=== PATIENT | female | born 1940 | race African-American/Black ===

== ENCOUNTER 2017-01-23 05:59 | Inpatient (IN) ==
--- NOTE | 2017-01-23 06:19 | PROVIDER DOCUMENTATION ---
HPI-General Adult - General Chief Complaint: Asthma Attack Stated Complaint: asthma attack Time Seen by Provider: 01/23/17 06:13 Source: patient, EMS Allergies/Adverse Reactions: Patient Allergies Allergy/AdvReac Type Severity Reaction Status Date / Time No Known Allergies Allergy Verified 01/23/17 06:16 Home Medications: Home Medication List Medication Instructions Recorded Confirmed Last Taken Type Nifedipine [Nifedipine ER] 90 mg PO DAILY 09/20/14 01/23/17 02/01/16 History Omeprazole 40 mg PO DAILY 09/20/14 01/23/17 02/01/16 History Aspirin [Aspirin EC] 81 mg PO DAILY 02/01/16 01/23/17 02/01/16 History - History of Present Illness -Gen Adult Nature of Presenting Problems: says that she started to have wheezing and worsening shortness of breath last night. has been fever free during this time. has not been intubated in the past and says that this is not her worst attack. patient not on home supplemental oxygen. Location of Pain/Injury: reports: none Pain Radiation: reports: no radiation Timing: reports: still present Modifying Factors: improves with: nothing Associated Symptoms: reports: shortness of breath Similar Symptoms Previously?: Yes Recently seen or treated by another doctor?: No Review of Systems - Adult - REVIEW OF SYSTEMS - ADULT Constitutional: reports: no symptoms reported. denies: fever Eyes: reports: no symptoms reported Ears, Nose, Mouth & Throat: reports: no symptoms reported Cardiovascular: reports: no symptoms reported Respiratory: reports: wheezing Gastrointestinal: reports: no symptoms reported Genitourinary: reports: no symptoms reported Musculoskeletal: reports: no symptoms reported Integumentary: reports: no symptoms reported Psychiatric: reports: no symptoms reported Endocrine: reports: no symptoms reported Hematologic/Lymphatic: reports: no symptoms reported Past History - Adult - PAST MEDICAL HISTORY-ADULT Review of Records: reports: Nursing Assessment Review Major Childhood Illnesses: reports: denies history Cardiovascular: reports: blood clots (PE - November 2015), HTN, hyperlipidemia Respiratory: reports: sleep apnea Gastrointestinal: reports: GERD Genitourinary: reports: kidney stones Other Conditions: reports: cataract/glaucoma - PRIOR SURGERIES/PROCEDURES Surgical/Procedure History: reports: colonoscopy, cholecystectomy, hysterectomy , joint replacement, other (kidney stone) - IMMUNIZATION STATUS Childhood Immunizations: See Nurse Assessment Flu Vaccine: See Nurse Assessment Physical Exam-General - PHYSICAL EXAM-ADULT Initial Vital Signs Reviewed: Yes - CONSTITUTIONAL General Appearance: other (uncomfortable but non-toxic in appearance) - EYES Eyes: PERRL/EOMI - HEAD, EARS, NOSE, MOUTH & THROAT HENMT: normocephalic/atraumatic - NECK Neck: non-tender - RESPIRATORY Respiratory: wheezing. negative: accessory muscle use, crackles - CARDIOVASCULAR Cardiovascular: regular rate, rhythm - GASTROINTESTINAL (ABDOMEN) Abdominal Exam: normal bowel sounds - LYMPHATIC Lymphatic: no adenopathy - MUSCULOSKELETAL Back Exam: normal inspection - NEUROLOGIC Neurologic: grossly normal, no motor/sensory deficits Progress - PLAN OF CARE/RESULTS Progress/Plan/Lab Results: Orders Category Date Time Status EKG [EKG] Stat Ther 01/23/17 05:58 Ordered Result Diagrams: 01/23/17 06:20 01/23/17 06:59 - REASSESSMENT Reassessment #1 Time Reassessed: 06:25 Status: improving (ABle to speak in more words.) Reassessment #2 Time Reassessed: 07:13 Status: other (Made aware of current treatment plan, Family made aware as well.) - CONSULTS/PCP/HOSPITALIST Notification #1 *Consult/PCP/Hospitalist*: Dr. Davison Time Discussed: 07:56 Consult Disposition: Admit, other (Made aware of reason for consult, made aware of treatment rendered while in ED and patient current stable condition. Agrees to accept patient and ask that admission orders be placed.) Departure - Departure Time of Disposition Decision: 07:21 DIAGNOSIS: Asthma exacerbation, CAP (community acquired pneumonia) Disposition: ADMITTED INPATIENT 09 Certified Medical Emergency: Emergent Condition: Stable Referrals and Follow-Ups: Matthew Frye MD [Primary Care Provider] - - Critical Care Note This patient required my direct & personal management of CC.: No
[2017-01-23] MEDS ORDERED: ALBUTEROL NEB INH ONE (06:26)
[2017-01-23] MEDS ORDERED: PREDNISONE PO ONE (06:26)
[2017-01-23] MEDS ORDERED: ATROVENT NEB INH ONE (06:27)
[2017-01-23 06:31] LABS: MANUAL DIFF NEEDED? NO
[2017-01-23 06:43] LABS: BASO% 0.5 % (0.0-0.8); EOS# 0.35 X1000 (0.0-0.7); EOS% 3.4 % (0.0-10.0); HEMATOCRIT 40.6 % (37.0-47.0); HEMOGLOBIN 13.6 g/dL (12.0-16.0); IMM GRAN# 0.03 X1000 (0.0-0.04); IMM GRAN% 0.3 % (0.0-0.5); LYMPH# 3.87 X1000 (1.2-3.4); LYMPH% 37.9 % (20.5-51.1); MCH 25.5 PG (27-31); MCHC 33.5 g/dL (33-37); MONO# 1.19 X1000 (0.11-0.59); MONO% 11.7 % (1.7-9.3); MPV 12.6 FL (7.4-10.4); NEUT% 46.2 % (42.2-75.2); PLT 230 X1000 (130-400); RBC 5.34 XMIL (4.2-5.4)
[2017-01-23] MEDS ORDERED: ROCEPHIN 500 MG in NS 50 ML IV ONE (07:12)
[2017-01-23] MEDS ORDERED: ZITHROMAX 500 MG/NS 500 MG/250 ML IVPB IV ONE (07:25)
[2017-01-23 07:44] LABS: ALBUMIN 4.3 g/dL (3.5-5.0); CALCIUM 10.7 mg/dL (8.8-10.2); POTASSIUM 3.7 mmol/L (3.5-5.1); TOTAL BILIRUBIN 0.34 mg/dL (0.20-1.00)
[2017-01-23] MEDS ORDERED: MORPHINE IV PRN (08:01)
--- NOTE | 2017-01-23 08:13 | Diag Imaging Result Doc PS360 ---
EXAM: CHEST-PORTABLE HISTORY: wheezing TECHNIQUE: Portable upright AP COMPARISON: 09/20/2014 FINDINGS: The lungs are well expanded. The heart is not enlarged. The vessels are not distended. No pneumonia. No pleural effusions identified. Mild scoliosis. IMPRESSION: Negative chest Electronically signed by Flo Rae 01/23/2017 8:10 AM
[2017-01-23] MEDS ORDERED: TYLENOL PO PRN (11:23)
[2017-01-23] MEDS ORDERED: DUONEB (A & A) INH SCH (11:30)
[2017-01-23] MEDS: ASPIRIN EC PO SCH (12:56)
[2017-01-23] MEDS: ADALAT CC PO SCH (12:57)
[2017-01-23] MEDS: SOLU-MEDROL IV SCH ×2 (12:57→22:14)
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
--- NOTE | 2017-01-23 15:38 | ED EKG INTERP ---
This chart was entered by Silvina Barnes Scribe, acting as scribe for Louis Sanchez MD. EKG Interpretation - EKG Time of EKG reading by physician:: 06:03 EKG Read and Signed by:: Louis Sanchez EKG Interpretation (*Must complete 3 of following elements*): Abnormal Rate: 99 (Possible left atrial enlargement; ST and T wave abnormality, consider lateral ischemia) Rhythm: NSR This chart was documented by the indicated scribe, (Silvina Barnes Scribe) and accurately reflects the services I performed and decisions made by Daniel garcia Vincent J., MD, as attested by the provider's signature.
[2017-01-23] MEDS: DUONEB (A & A) INH SCH ×2 (16:22→23:05)
[2017-01-23] MEDS: PRILOSEC PO SCH (22:15)
[2017-01-23] MEDS: ROCEPHIN 1 GM/NS 1 GM/50 ML IVPB IV SCH (22:16)
[2017-01-23] MEDS: RESTORIL PO PRN (22:16)
[2017-01-24] MEDS: DUONEB (A & A) INH SCH ×4 (03:34→23:06)
[2017-01-24] MEDS: PRILOSEC PO SCH ×2 (05:59→21:36)
[2017-01-24] MEDS: SOLU-MEDROL IV SCH ×3 (05:59→21:37)
[2017-01-24 06:40] LABS: HEMATOCRIT 35.3 % (37.0-47.0); HEMOGLOBIN 11.8 g/dL (12.0-16.0); IMM GRAN# 0.03 X1000 (0.0-0.04); IMM GRAN% 0.2 % (0.0-0.5); LYMPH# 0.94 X1000 (1.2-3.4); LYMPH% 6.4 % (20.5-51.1); MANUAL DIFF NEEDED? YES; MCH 25.7 PG (27-31); MCHC 33.4 g/dL (33-37); MCV 76.9 FL (81-99); MONO# 0.38 X1000 (0.11-0.59); MONO% 2.6 % (1.7-9.3); MPV 12.8 FL (7.4-10.4); NEUT% 90.8 % (42.2-75.2); PLT 205 X1000 (130-400); RBC 4.59 XMIL (4.2-5.4)
[2017-01-24 06:51] LABS: AGAP 12; BUN 21 mg/dL (8-22); CALCIUM 9.4 mg/dL (8.8-10.2); CHLORIDE 107 mmol/L (98-107); COSMO 287; SODIUM 141 mmol/L (136-145); TCO2 22 mmol/L (25-35)
[2017-01-24 07:16] LABS: BANDS 2 % (0-1); LYMPHS 4 % (21-51); MONO 2 % (1-9)
[2017-01-24] MEDS: ROCEPHIN 1 GM/NS 1 GM/50 ML IVPB IV SCH ×2 (09:40→21:36)
[2017-01-24] MEDS: ASPIRIN EC PO SCH (09:40)
[2017-01-24] MEDS: ADALAT CC PO SCH (09:40)
--- NOTE | 2017-01-24 11:57 | PROGRESS NOTE ---
DATE: 01/24/2017 SUBJECTIVE: The patient overall is doing better, breathing better. She is eating her lunch. OBJECTIVE: Afebrile, pulse 97 to 100, respiratory rate 18, blood pressure 145/78, O2 saturation on oxygen is 97%. Cardiovascular: Regular rate and rhythm. Lungs: Coarse breath sounds, particularly at right lung base, otherwise CTA. No active wheezes. Abdomen: Nontender. Extremities: No calf tenderness, cords or edema. Neurologic: Cranial nerves intact. No focal deficits. DIAGNOSTIC DATA: Blood cultures x2 at this point are negative. White count up to 15,000 from 10,000, but that is on IV steroids. Hemoglobin 11.8, platelets 205, neutrophils 91, lymphocytes 6.4. Sodium 141, potassium 4.0, chloride 107, CO2 is 22, BUN is 21, creatinine 0.8, calcium 9.4. Plasma lactate on admission 2.7. ASSESSMENT: 1. Asthma exacerbation. 2. Bronchitis. 3. Hypertension. 4. Gastroesophageal reflux disease. PLAN: Continue aspirin, nifedipine, omeprazole. Continue IV Rocephin and Zithromax started per Dr. Davison. Continue albuterol and Atrovent nebulizer treatments q.6 hours and IV Solu Medrol 60 mg IV q.8 hours. If the patient continues to improve, we hope to discharge her tomorrow. cc: MD Elias Read MD
[2017-01-24] MEDS: ZITHROMAX 500 MG/NS 500 MG/250 ML IVPB IV SCH (14:01)
[2017-01-24] MEDS: RESTORIL PO PRN (21:39)
[2017-01-25] MEDS: DUONEB (A & A) INH SCH ×4 (03:20→22:36)
[2017-01-25] MEDS: SOLU-MEDROL IV SCH ×3 (05:05→20:26)
[2017-01-25 06:27] LABS: HEMATOCRIT 37.6 % (37.0-47.0); HEMOGLOBIN 12.5 g/dL (12.0-16.0); IMM GRAN# 0.04 X1000 (0.0-0.04); IMM GRAN% 0.2 % (0.0-0.5); LYMPH# 1.16 X1000 (1.2-3.4); LYMPH% 6.9 % (20.5-51.1); MANUAL DIFF NEEDED? YES; MCH 25.5 PG (27-31); MCHC 33.2 g/dL (33-37); MCV 76.6 FL (81-99); MONO# 0.77 X1000 (0.11-0.59); MONO% 4.6 % (1.7-9.3); MPV 12.6 FL (7.4-10.4); NEUT% 88.3 % (42.2-75.2); PLT 219 X1000 (130-400); RBC 4.91 XMIL (4.2-5.4)
[2017-01-25] MEDS: PRILOSEC PO SCH ×2 (06:54→20:26)
[2017-01-25 06:56] LABS: AGAP 14; BUN 21 mg/dL (8-22); CALCIUM 9.7 mg/dL (8.8-10.2); CHLORIDE 103 mmol/L (98-107); COSMO 286; SODIUM 141 mmol/L (136-145); TCO2 24 mmol/L (25-35)
[2017-01-25 07:01] LABS: LYMPHS 6 % (21-51); MONO 1 % (1-9)
--- NOTE | 2017-01-25 09:08 | PROGRESS NOTE ---
DATE: 01/25/2017 SUBJECTIVE: Interval history was reviewed. Admitted to the hospital with recurrent asthmatic bronchitis. The patient denies of any chest pain, shortness of breath, PND, orthopnea. REVIEW OF SYSTEMS: GI: No nausea, vomiting, abdominal pain. : No history of hesitancy, frequency. Rest of review of systems normal. PAST MEDICAL HISTORY, PAST SURGICAL HISTORY, MEDICINES: Reviewed. PHYSICAL EXAMINATION: Vital Signs: On examination, she is afebrile, tachycardic, and vitals are stable. HEENT: Within normal limits on oxygen 2 L. Neck: Supple. No lymphadenopathy. No goiter. Chest: Bilateral scattered wheezing. Heart: Sounds are regular, no murmur. Abdomen: Belly is soft, nontender. Good bowel sounds. No masses palpable. Extremities: No peripheral edema, cyanosis, clubbing. Neurologic exam: Nonfocal. INVESTIGATIONS: White cell count 16.7, hematocrit 37, platelet is 219. SMA 7 was normal. Chest x-ray was negative. ASSESSMENT AND PLAN: 1. Acute asthmatic bronchitis, currently on intravenous steroids, ceftriaxone and Zithromax. 2. Gastrointestinal prophylaxis with Prilosec and bronchodilators. Will repeat the x-ray and arterial blood gas. We will follow up. cc: Elias Frye MD
[2017-01-25] MEDS: ADALAT CC PO SCH (09:20)
[2017-01-25] MEDS: ASPIRIN EC PO SCH (09:20)
[2017-01-25] MEDS: ROCEPHIN 1 GM/NS 1 GM/50 ML IVPB IV SCH ×2 (09:20→20:26)
[2017-01-25] MEDS: ZITHROMAX 500 MG/NS 500 MG/250 ML IVPB IV SCH (15:58)
[2017-01-25] MEDS: RESTORIL PO PRN (22:40)
[2017-01-26] MEDS: DUONEB (A & A) INH SCH ×4 (03:23→20:18)
[2017-01-26 04:24] LABS: ALLEN TEST YES; BE 1.7 mmoll (-3.0-3.0); BLOOD TYPE ARTERIAL; DRAW SITE R RADIAL; METHB 1.3 % (0.0-1.5); PCO2(98.6) 42 mmHg (35-45); PO2(98.6) 58 mmHg (60-100); SAMPLE BLOOD; SAO2 93.7 % (95.0-100.0); THB 13.3 g/dL (11.5-17.4); pH(98.6) 7.41 (7.35-7.45)
[2017-01-26 04:25] LABS: MODALITY CANNULA
[2017-01-26] MEDS: SOLU-MEDROL IV SCH ×3 (04:50→20:06)
[2017-01-26] MEDS: PRILOSEC PO SCH ×3 (04:50→20:07)
[2017-01-26 06:40] LABS: MANUAL DIFF NEEDED? NO
[2017-01-26 06:47] LABS: HEMATOCRIT 37.6 % (37.0-47.0); HEMOGLOBIN 12.5 g/dL (12.0-16.0); IMM GRAN# 0.06 X1000 (0.0-0.04); IMM GRAN% 0.5 % (0.0-0.5); LYMPH# 1.04 X1000 (1.2-3.4); LYMPH% 8.3 % (20.5-51.1); MCH 25.5 PG (27-31); MCHC 33.2 g/dL (33-37); MCV 76.7 FL (81-99); MONO# 0.94 X1000 (0.11-0.59); MONO% 7.5 % (1.7-9.3); NEUT% 83.7 % (42.2-75.2); PLT 214 X1000 (130-400)
[2017-01-26 07:23] LABS: AGAP 13; BUN 17 mg/dL (8-22); CALCIUM 9.8 mg/dL (8.8-10.2); CHLORIDE 102 mmol/L (98-107); COSMO 283; POTASSIUM 4.5 mmol/L (3.5-5.1); SODIUM 140 mmol/L (136-145); TCO2 25 mmol/L (25-35)
--- NOTE | 2017-01-26 07:39 | Diag Imaging Result Doc PS360 ---
EXAM: CHEST-2 VIEWS HISTORY: hypoxia TECHNIQUE: COMPARISON: 01/23/2017 FINDINGS: Interval development of atelectasis in the right base. Heart is not enlarged. The vessels are not distended. Questionable trace right effusion. Mild scoliosis. IMPRESSION: Interval development of right basilar atelectasis. Electronically signed by Flo Rae 01/26/2017 7:36 AM
--- NOTE | 2017-01-26 08:38 | PROGRESS NOTE ---
DATE: 01/26/2017 SUBJECT: She complains of a little bit shortness of breath. No chest pain. No PND. No orthopnea. REVIEW OF SYSTEMS: None reported. PHYSICAL EXAMINATION: Afebrile. Vitals are stable. HEENT exam is within normal limits. Neck is supple. Chest: No wheezing. Heart sounds are regular. Belly is soft, nontender. No peripheral edema, cyanosis, or clubbing. INVESTIGATIONS: White cell count 12, hematocrit 37, platelets 214,000. ABG: pH is 7.41, pCO2 of 42, PO2 of 58 on 28%. SMA-7 is normal. Troponin was negative. ProBNP was normal. Chest x-ray: Right lower lobe atelectasis which is new. ASSESSMENT AND PLAN: 1. Asthma attack is stable. Decrease IV steroids. 2. Deep venous thrombosis prophylaxis with Lovenox. 3. Gastrointestinal prophylaxis with Prilosec. Continue the antibiotics and decrease the steroids. 4. Right lower lobe atelectasis. Incentive spirometry. I encouraged the patient to be active out of the bed with ambulation and, hopefully, will be discharged in 48 hours. The level of documentation is 25 minutes. cc: Elias Frye MD
[2017-01-26] MEDS: ROCEPHIN 1 GM/NS 1 GM/50 ML IVPB IV SCH ×2 (10:07→20:06)
[2017-01-26] MEDS: ADALAT CC PO SCH (10:08)
[2017-01-26] MEDS: ASPIRIN EC PO SCH (10:08)
[2017-01-26] MEDS: LOVENOX SUBQ SCH (10:09)
[2017-01-26] MEDS: ZITHROMAX 500 MG/NS 500 MG/250 ML IVPB IV SCH (15:41)
[2017-01-26] MEDS: RESTORIL PO PRN (22:09)
[2017-01-27] MEDS: DUONEB (A & A) INH SCH ×5 (04:41→23:36)
[2017-01-27] MEDS: PRILOSEC PO SCH ×3 (05:28→21:22)
[2017-01-27] MEDS: SOLU-MEDROL IV SCH (05:28)
--- NOTE | 2017-01-27 09:14 | PROGRESS NOTE ---
DATE: 01/27/2017 SUBJECTIVE: The patient is doing very well. No wheezing. No chest pain. No swelling of legs. Off oxygen, on room air. Chest x-ray findings were discussed with the patient with atelectasis in the right lower lobe. PHYSICAL EXAMINATION: Vital Signs: Stable. Chest: Clear. No signs of pneumonitis. Heart: Heart sounds are regular. Abdomen: Belly is soft, nontender. Good bowel sounds. Neurologic: No obvious neurological deficits. INVESTIGATIONS: Were reviewed. ProBNP was normal. Chest x-ray with right lower lobe atelectasis. ASSESSMENT AND PLAN: 1. Asthmatic bronchitis, improving. Decreases her intravenous steroids. 2. Right lower lobe bronchiectasis. Increase incentive spirometry. Continue on ceftriaxone and Zithromax. 3. Hypertension. On nifedipine. 4. Deep venous thrombosis prophylaxis with Lovenox. 5. If he is stable, he will be discharged in the morning. LEVEL OF DOCUMENTATION: 15 minutes. cc: Elias Frye MD
[2017-01-27] MEDS: ADALAT CC PO SCH (09:16)
[2017-01-27] MEDS: ROCEPHIN 1 GM/NS 1 GM/50 ML IVPB IV SCH ×2 (09:16→21:22)
[2017-01-27] MEDS: LOVENOX SUBQ SCH (09:16)
[2017-01-27] MEDS: ASPIRIN EC PO SCH (09:16)
[2017-01-27] MEDS: ZITHROMAX 500 MG/NS 500 MG/250 ML IVPB IV SCH (16:32)
[2017-01-27] MEDS: RESTORIL PO PRN (22:16)
[2017-01-28] MEDS: DUONEB (A & A) INH SCH ×4 (03:07→20:48)
[2017-01-28] MEDS: PRILOSEC PO SCH ×2 (06:57→20:18)
--- NOTE | 2017-01-28 08:57 | PROGRESS NOTE ---
DATE: 01/28/2017 SUBJECTIVE: Patient is doing very well. Oxygen is discontinued. No shortness of breath. No chest pain. No PND. No orthopnea. REVIEW OF SYSTEMS: None reported. PHYSICAL EXAMINATION: Vital signs are stable. HEENT exam is within normal limits. Neck is supple. No lymphadenopathy. No goiter. Chest is clear. Heart sounds are regular. Belly is soft, nontender. Good bowel sounds. Neurologic: Nonfocal. ASSESSMENT AND PLAN: 1. Asthmatic bronchitis is better. Continue present antibiotics. 2. Right lower lobe atelectasis. Follow up chest x-ray in the morning. Results discussed with the patient, and she wants to go home in the morning. Continue incentive spirometer, out of the bed, and continue present medical regimen. Level of documentation is 15 minutes. cc: Elias Frye MD
[2017-01-28] MEDS: ADALAT CC PO SCH (09:54)
[2017-01-28] MEDS: ASPIRIN EC PO SCH (09:54)
[2017-01-28] MEDS: LOVENOX SUBQ SCH (09:54)
[2017-01-28] MEDS: ROCEPHIN 1 GM/NS 1 GM/50 ML IVPB IV SCH ×2 (09:55→20:19)
[2017-01-28] MEDS: SOLU-MEDROL IV SCH (09:55)
[2017-01-28] MEDS: ZITHROMAX 500 MG/NS 500 MG/250 ML IVPB IV SCH (16:12)
[2017-01-28] MEDS: RESTORIL PO PRN (23:11)
[2017-01-29] MEDS: DUONEB (A & A) INH SCH ×2 (03:58→10:09)
[2017-01-29] MEDS: PRILOSEC PO SCH (05:59)
[2017-01-29 07:20] VITALS: BP 119/61
--- NOTE | 2017-01-29 09:11 | Diag Imaging Result Doc PS360 ---
EXAM: CHEST-2 VIEWS INDICATION: hypoxia TECHNIQUE: 2 views COMPARISON: 01/26/2017 FINDINGS: Atelectasis at the right lung base has improved during the interval. I cannot identify a definite pleural fluid collection on the current study. No new consolidations are appreciated. Cardiac silhouette is stable. IMPRESSION: Improved atelectasis at the right lung base. Electronically signed by Ck Hubbard 01/29/2017 9:08 AM
[2017-01-29] MEDS: SOLU-MEDROL IV SCH (09:39)
[2017-01-29] MEDS: LOVENOX SUBQ SCH (09:39)
[2017-01-29] MEDS: ROCEPHIN 1 GM/NS 1 GM/50 ML IVPB IV SCH (09:40)
[2017-01-29] MEDS: ASPIRIN EC PO SCH (09:40)
[2017-01-29] MEDS: ADALAT CC PO SCH (09:46)
[2017-01-29] MEDS ORDERED: PNEUMOVAX 23 IM ONE (11:17)
--- NOTE | 2017-01-29 17:27 | DISCHARGE SUMMARY ---
ADMISSION DATE: 01/23/2017 DISCHARGE DATE: 01/29/2017 DISCHARGING DIAGNOSIS: Acute asthmatic bronchitis. SECONDARY DIAGNOSES: 1. Kidney stones. 2. Hypertension. 3. Acid reflux disease. OTHER PROBLEMS: 1. Left knee replacement. 2. Cervical spine surgery. 3. Cholecystectomy. BRIEF HISTORY: Please see the H and P that was done by Dr. Davison. In brief, she is a 76-year-old, pleasant, female, admitted to the hospital with shortness of breath, cough, wheezing. Chest x-ray showed questionable infiltrate in the left lower lobe. HOSPITAL COURSE: She was given oxygen, bronchodilators, IV steroids, IV antibiotics with Rocephin and Zithromax. Followup chest x-ray showed right lower lobe atelectasis. The patient was given incentive spirometry out of the bed. Slowly weaned off oxygen. She is less bronchospastic and slowly tapers the steroids. At the time of discharge, patient is stable and patient was given pneumonia vaccine prior to the discharge. DIAGNOSTIC DATA: Laboratories: CBC; white cell count 12.5, hematocrit 37, platelets 214,000. ABG; pH is 7.41, pCO2 42, PO2 58 on 2 L on nasal cannula, without room air oxygen is 98%. SMA 7; sodium 140, potassium 4.5, chloride 102, BUN 17, creatinine 0.8, glucose 134, calcium 9.8. ProBNP was normal. Cardiac enzymes were normal. Chest x-ray; interval improvement of right lower lobe atelectasis. DISCHARGING INSTRUCTIONS ARE FOLLOWS: Prilosec 40 daily, nifedipine 90 daily, aspirin 81 mg daily, Medrol Dosepak, Zithromax 500 daily for 7 days, Proventil as needed. Follow up in my office next week. Pneumonia vaccine 23 was given on 01/29/2017. cc: Elias Frye MD
== END 2017-01-29 13:09 | disposition home or self-care (01) ==
LOC: ED 05:59 → 3N 08:34
PROVIDERS: ADMIT Internal Medicine; ATTEND Internal Medicine